=== PATIENT | female | born 1970 | race Caucasian/White ===

== ENCOUNTER → 2017-04-19 | Outpatient (CLI) | payer BC ==
[2017-04-19 12:16] LABS: HEMATOCRIT 37.5 % (37-47); MEAN CELL VOLUME 94.7 fL (80-100); MEAN CORPUSCULAR HEMOGLOBIN 32.6 pg (25-34); MEAN CORPUSCULAR HGB CONC 34.4 g/dl (32-36); MEAN PLATELET VOLUME 10.6 fL (7.4-10.4); PLATELET COUNT 236 K/uL (130-400); RED BLOOD COUNT 3.96 M/uL (4.2-5.4); WHITE BLOOD COUNT 6.85 K/uL (4.8-10.8)
[2017-04-19 12:49] LABS: ALT/SGPT 21 U/L (12-78); BLOOD UREA NITROGEN 10 mg/dl (7-18); CALCIUM 8.4 mg/dl (8.5-10.1); CARBON DIOXIDE 24 mmol/L (21-32); CHLORIDE 110 mmol/L (98-107); CHOLESTEROL 121 mg/dl (0-200); CREATININE 0.76 mg/dl (0.60-1.20); GLUCOSE,FASTING 87 mg/dl (70-99); POTASSIUM 3.7 mmol/L (3.5-5.1); SODIUM 143 mmol/L (136-145)
[2017-04-19 12:59] LABS: ALB/GLOB RATIO 0.9 (0.9-2); ALKALINE PHOSPHATASE 68 U/L (45-117); AST/SGOT 20 U/L (15-37); HDL CHOLESTEROL 41 mg/dl; LDL CHOLESTEROL CALCULATED 71 mg/dl; THYROID STIMULATING HORMONE 0.782 uIu/ml (0.300-4.500); TRIGLYCERIDES 44 mg/dl (0-150); VERY LOW DENSITY LIPOPROT CALC 9 mg/dl
--- NOTE | 2017-04-25 06:32 | CODING QUERY MEDICAL NECESSITY ---
SUPPORTING DIAGNOSIS NEEDED Norm RFANCIS, A supporting diagnosis is required for the test/procedure performed on this patient in order for us to be reimbursed by the patient's insurance. Please provide a supporting diagnosis for the following test/procedure listed below next to the test name along with your signature. *If there is no additional diagnosis for this patient that would support the following test/procedure please document that below next to the test/procedure. Test(s)/Procedure(s) that require a supporting diagnosis: * ([id number]) VITAMIN D ASSAY DIAGNOSIS: DATE OF SERVICE: 04/19/17 Provider Signature: Date: Thank you Pj Patricia [facility] Information Management Once completed, please kindly fax back to [phone] For questions please call [phone]
== END | disposition home or self-care (01) ==
LOC: C.LABPBG 07:50
PROVIDERS: ATTEND Family Medicine
DX: Z00.00 Encounter for general adult medical examination without abnormal findings (principal); E03.9 Hypothyroidism, unspecified; Z13.21 Encounter for screening for nutritional disorder; R53.83 Other fatigue

== ENCOUNTER → 2017-04-27 | Outpatient (CLI) | payer BC | END | disposition home or self-care (01) | LOC: C.LABPBG 12:31 | PROVIDERS: ATTEND Family Medicine | DX: M79.672 Pain in left foot (principal) ==

== ENCOUNTER → 2017-06-06 | Outpatient (CLI) | payer BC ==
[2017-06-06 12:26] LABS: THYROID STIMULATING HORMONE 0.113 uIu/ml (0.300-4.500)
== END | disposition home or self-care (01) ==
LOC: C.LABPBG 07:48
PROVIDERS: ATTEND Physician Assistant
DX: E03.9 Hypothyroidism, unspecified (principal)

== ENCOUNTER → 2017-08-06 | Outpatient (CLI) | payer OTHER | END | disposition home or self-care (01) | LOC: C.LABPBG 09:53 | PROVIDERS: ATTEND Family Medicine | DX: E03.9 Hypothyroidism, unspecified (principal) ==

== ENCOUNTER → 2018-02-28 | Outpatient (CLI) | payer OTHER ==
[2018-02-28 17:16] LABS: BLOOD UREA NITROGEN 24 mg/dl (7-18); CARBON DIOXIDE 30 mmol/L (21-32); CREATININE 0.76 mg/dl (0.60-1.20); GLUCOSE 90 mg/dl (70-99); POTASSIUM 3.8 mmol/L (3.5-5.1); SODIUM 140 mmol/L (136-145)
== END | disposition home or self-care (01) ==
LOC: C.LABPBG 13:24
PROVIDERS: ATTEND Family Medicine
DX: Z00.00 Encounter for general adult medical examination without abnormal findings (principal); E03.9 Hypothyroidism, unspecified; E55.9 Vitamin D deficiency, unspecified

== ENCOUNTER 2025-03-01 17:58 | Observation (INO) ==
[2025-03-01 18:47] LABS: Hematocrit (blood only) 40.9 % (37.0-47.0); Hemoglobin 14.1 g/dl (12.0-16.0); Immature Granulocytes # (auto) 0.03 K/uL (0.01-0.20); Immature Granulocytes % (auto) 0.4 %; Mean Corpuscular Hemoglobin 32.9 pg (25.0-34.0); Mean Corpuscular Volume 95.3 fL (80.0-100.0); Platelet Count 299 K/uL (130-400); RDW Standard Deviation 48.8 fL (36.4-46.3); Red Blood Count 4.29 M/uL (4.20-5.40); White Blood Count 7.94 K/ul (4.8-10.8)
[2025-03-01] MEDS: OPTIRAY 320 125ml IV ONE (18:50)
[2025-03-01] MEDS: SODIUM CHLORIDE 0.9% 1,000 ML IV ONE (19:00)
--- NOTE | 2025-03-01 19:00 | Emergency Department Note ---
Impression & Plan Right sided numbness, Pressure in head ED Provider Note Provider: Rivera Garcia MD CHIEF COMPLAINT: Head pressure, fog, numbness HISTORY OF PRESENT ILLNESS: Patient is a 54-year-old female history of psoriatic arthritis, hypothyroidism, and occasional migraines presenting here today with . Patient states was doing well and was out of town visiting family. Around 11:30 AM or so went out to eat with her 's family. At that time had sudden onset of some nausea. Started feel little bit spacey at that time. Did not pass out but does not remember much of lunch and did not eat anything. Family member had some Zofran and she took this and her nausea has abated and abated shortly after that. States around 2 PM she began to experience a fullness in the right side of her head with occasional pounding and some warmth in the upper chest. Having some numbness to her right face right arm and right leg. They are moving well. No speech issues although she is a bit soft-spoken. states she does get soft-spoken when she gets migraines. She states does not feel anything like prior migraines and she is never had associated numbness with it. No trauma. No passing out. They drove home and as she was feeling unwell he decided to stop here. Feels like she is in a bit of a fog by report. No more nausea. No abdominal pain. No chest pain. Patient with some unchanged chronic dizziness. No fevers or cough or cold reported. Did incidentally report a small rash with a red bump on her right wrist and her right shoulder for the last several days. Not spreading or changing somewhat itchy. PAST MEDICAL HISTORY: As noted above MEDICATIONS: Reviewed no medications includes estrogen supplement and includes Humira for psoriatic arthritis SOCIAL HISTORY: , lives in car at this PHYSICAL EXAM: GENERAL: alert and oriented in no acute distress on stretcher Head: normocephalic and atraumatic EYES: No injection, discharge or icterus. PERRL, EOMI. NECK: Trachea midline. Supple. ENT: Mucous membranes pink and moist. LUNGS: Airway patent. No retractions or tachypnea HEART: Regular rate and rhythm. ABDOMEN: Soft and non-tender, without guarding or rebound. SKIN: Acyanotic, warm, dry, without rashes EXTREMITIES: Without swelling, tenderness or deformity NEUROLOGICAL: No aphasia. No facial droop or slurred speech. Tongue midline. Normal strength and tone in the extremities. Diminished sensation on the right arm diffusely, leg diffusely, and right face compared to left side but is present. Patient is ambulatory with normal gait. EK beats per minute. Normal sinus rhythm. No PVC or PAC. No acute ST segment elevation or depression with QTc 437. CONTINUOUS CARDIAC MONITORING: was ordered and showed a heart rate of 60s to 70s bpm in normal sinus rhythm Patient's laboratory studies and imaging reviewed. Differential includes Infection, dehydration, metabolic abnormality, hypo/hyperglycemia, electrolyte disturbance, anemia, hypoxia, cardiac sources, intracerebral event, toxicologic, neurologic, as well as other pathologies. IMPRESSION/MEDICAL DECISION MAKING: Patient is outside the window for thrombolytics and minimal numbness to the right face arm and leg. No motor deficits. No aphasia. No slurred speech. No infectious symptoms reported. Not a severe headache more of a pressure and occasional throb. Sent for CT and CTA. Basic blood work is sent. Blood sugar normal. No alcohol use reported. Blood work without significant anemia or leukocytosis. No severe electrolyte abnormality signs or renal dysfunction. Has not had much to eat or drink today and given some fluids and while she has a history of some migraines did give some Reglan in case this is migrainous in nature and she did have some nausea earlier. Symptoms do not seem consistent with SAH. Blood work here without significant anemia leukocytosis. No significant lecture light abnormalities or renal dysfunction. Lyme screen is negative. Troponin not significantly elevated. CT of the head and CT angiograms per radiology report without significant abnormality or intracranial hemorrhage. Patient did decline the Reglan here. Is receiving the IV fluids. Still with some right- sided numbness and "head pressure ". As such question of this could possibly represent occult CVA versus TIA. Could still be a complex migraine. Will bring in for further neurological evaluation. No LVO and outside the window for thrombolytics. DIAGNOSIS: Right-sided numbness, atypical headache DISPOSITION: Hospitalist will evaluate Patient was agreeable with this plan. 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, 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 Psoriatic arthritis Gout Hypothyroidism Migraine headache Vitamin D deficiency Medical History (Updated 03/01/25 @ 20:14 by Rivera Garcia M.D.) Benign cardiac murmur "no issues, had stress test and echo in 2000 to have this checked" Osteoarthritis of carpometacarpal (CMC) joint of left thumb Hx of migraines 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, 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 Influenza A (~08/09/23) hx, resolved COVID-19 virus detected recent exposure and positive home test 01/26/22- fever, aches, cough, sob>no residual symptoms BCC (basal cell carcinoma of skin) left thigh-surgically removed Surgical History Hx of cystoscopy S/P colonoscopy History of carpal tunnel release S/P skin cancer resection (06/2020) S/P hysterectomy (2011) H/O left wrist surgery (01/2016) Family History Father Cardiovascular disorder Diabetes Hypertension Kidney disease Myocardial infarction Colonic polyp Mother , 2016 Gallbladder disease Osteoporosis Parkinson disease Grandfather (Paternal) Colorectal cancer Denies family history of Ovarian cancer Breast cancer Social History Smoking Status: Never smoker Tobacco Type: Cigarettes Age Started Using Tobacco: 17; Age Quit Using Tobacco: 18; packs per day: 0.15; Second Hand Exposure: Yes (hx as child); Do You Dip or Chew Tobacco: No; Hx Alcohol Use: Yes Alcohol type: beer, wine and hard liquor Hx Substance Use: No Preferred Language: Turkmen Communication Ability: Effective Visual Impairment: No Limitations Hearing Ability: Normal Plaster Form Maker Required: No Beliefs That Will Affect Care: None marital status: Current Living Situation: Spouse Current Living Situation Comment: with spouse and children. 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 Feels Safe at Home: Yes Childhood Exposure to Second-Hand Smoke: No Diet: regular Diet Comment: Well balanced diet. caffeine: Yes (Coffee 1 per day. Tea 1 per day. ) during the past year weight has: decreased > 10 lbs Dental Care, Regularly: Yes Physical Activity Frequency: Daily Physical Activity Frequency Comment: Walking with dog. Seatbelt Use: always Sunscreen Use: Yes Assistive Devices: Glasses Allergies Allergies Allergy/AdvReac Type Severity Reaction Status Date / Time celecoxib [From Celebrex] Allergy Severe Difficulty Verified 12/29/24 11:10 Breathing doxycycline AdvReac Mild vertigo Verified 12/29/24 11:10 erythromycin base AdvReac Mild Vomiting Verified 12/29/24 11:10 [From Erythrocin] Home Meds Home Medications Medication Instructions Recorded Confirmed calcium carbonate (Oyster Shell 1,000 mg PO HS 03/06/19 03/01/25 Calcium) multivitamin 1 tab PO QPM 03/06/19 03/01/25 cholecalciferol (vitamin D3) 25 2,000 units PO QAM 03/11/19 03/01/25 mcg (1,000 unit) tablet (Vitamin D3) adalimumab 40 mg/0.8 mL 40 mg subcut Q14D 10/06/20 03/01/25 subcutaneous pen kit (Humira Pen) cetirizine 10 mg tablet (Zyrtec) 10 mg PO QAM PRN Allergy Symptoms 03/17/21 03/01/25 meloxicam 15 mg tablet 15 mg PO QAM PRN Pain 04/15/24 03/01/25 fluticasone propionate 50 2 spray intranasal QAM 06/12/24 03/01/25 mcg/actuation nasal spray,suspension (Flonase Allergy Relief) hydrocortisone 2.5 % topical 1 applic topical BID PRN flaring 06/12/24 03/01/25 ointment Previous Rx's Medication Instructions Recorded pantoprazole 40 mg tablet,delayed 40 mg PO DAILY #90 tabs 08/19/24 release budesonide-formoterol HFA 80 1 inh inhalation BID #10.2 grams 12/29/24 mcg-4.5 mcg/actuation aerosol inhaler loratadine-pseudoephedrine ER 10 1 tab PO DAILY #90 tabs 12/31/24 mg-240 mg tablet,extended [id number] (Claritin-D 24 Hour) albuterol sulfate 90 mcg/actuation 1 - 2 puff inhalation Q4H PRN 01/06/25 aerosol inhaler shortness of breath or wheezing #8.5 grams estradiol 0.5 mg tablet 0.5 mg PO HS #90 tabs 01/26/25 levothyroxine 100 mcg tablet 100 mcg PO HS #90 tabs 01/26/25 Results & Data (ED) Vital Signs Vital Signs - 24 hr 03/01/25 18:04 03/01/25 18:09 03/01/25 18:24 Temperature 36.6 C Temperature Source Oral Pulse Rate 79 79 Pulse Rate [Apical] 74 Pulse Rhythm Regular Pulse Rhythm [Apical] Regular Pulse Strength Normal Pulse Strength [Apical] Normal Respiratory Rate 20 20 Respiratory Effort / Characteristics Non-Labored Spontaneous Non-Labored Spontaneous Respiratory Depth Normal Normal Respiratory Pattern Regular Regular Blood Pressure 158/92 H Blood Pressure [Right Arm] 158/92 H Blood Pressure Mean 114 Blood Pressure Mean [Right Arm] 114 Blood Pressure Position Lying Blood Pressure Position [Right Arm] Lying Pulse Oximetry 100 95 Oxygen Delivery Method Room Air Room Air Sepsis Recent Fever Within 48 Hours No Sepsis New/Unexplained Change in Mental Status No Sepsis Action Taken by Nursing No Action Required 03/01/25 18:41 Temperature Temperature Source Pulse Rate Pulse Rate [Apical] 73 Pulse Rhythm Pulse Rhythm [Apical] Regular Pulse Strength Pulse Strength [Apical] Normal Respiratory Rate 20 Respiratory Effort / Characteristics Non-Labored Spontaneous Respiratory Depth Normal Respiratory Pattern Regular Blood Pressure Blood Pressure [Right Arm] 158/92 H Blood Pressure Mean Blood Pressure Mean [Right Arm] 114 Blood Pressure Position Blood Pressure Position [Right Arm] Lying Pulse Oximetry 93 Oxygen Delivery Method Room Air Sepsis Recent Fever Within 48 Hours Sepsis New/Unexplained Change in Mental Status Sepsis Action Taken by Nursing Laboratory Data 03/01/25 18:20 03/01/25 18:20 Lab Results 03/01/25 03/01/25 03/01/25 Range/Units 18:15 18:20 18:27 WBC 7.94 (4.8-10.8) K/ul RBC 4.29 (4.20-5.40) M/uL Hgb 14.1 (12.0-16.0) g/dl POC Hgb 15.3 (12.0-16.0) g/dl Hct 40.9 (37.0-47.0) % POC Hct 45 (37-47) % MCV 95.3 (80.0-100.0) fL MCH 32.9 (25.0-34.0) pg MCHC 34.5 (32.0-36.0) g/dL RDW Std Deviation 48.8 H (36.4-46.3) fL RDW Coeff of Marva 13.8 (11.5-14.5) % Plt Count 299 (130-400) K/uL MPV 10.0 (9.4-12.4) fL Immature Gran % (Auto) 0.4 % Neut % (Auto) 72.7 % Lymph % (Auto) 21.2 % Kenton % (Auto) 4.5 % Eos % (Auto) 0.4 % Baso % (Auto) 0.8 % Neut # (Auto) 5.78 (1.40-6.50) K/uL Lymph # (Auto) 1.68 (1.20-3.40) K/uL Kenton # (Auto) 0.36 (0.11-0.59) K/uL Eos # (Auto) 0.03 (0.00-0.50) K/uL Baso # (Auto) 0.06 (0.00-0.20) K/uL Immature Gran # (Auto) 0.03 (0.01-0.20) K/uL PT 10.5 (9.0-12.0) Seconds INR 1.0 (0.9-1.1) APTT 27 (21-31) Seconds PTT Ratio 1.0 POC Sodium 140 (135-144) mmol/L Sodium 139 (136-145) mmol/L POC Potassium 3.9 (3.3-5.0) mmol/L Potassium 3.9 (3.5-5.1) mmol/L POC Chloride 103 (101-112) mmol/L Chloride 103 (98-107) mmol/L Carbon Dioxide 27 (21-32) mmol/L POC Total CO2 26 (24-31) mmol/L Anion Gap 9 (3-11) POC Anion Gap 16.0 (16-25) mmol/L POC BUN 8 (7-18) mg/dl BUN 9 (6-23) mg/dl Creatinine 0.84 (0.6-1.2) mg/dl POC Creatinine 0.9 (0.6-1.3) mg/dl Est Cr Clr Drug Dosing 80.5 ml/min eGFR 81.51 BUN/Creatinine Ratio 10.7 (10-20) Glucose 99 (70-99(Fasting)) mg/dl POC Glucose 75 (70-99) mg/dl POC Glucose (other) 100 H (70-99) mg/dl Calcium 9.8 (8.6-10.3) mg/dl POC Ioniz Calcium Harshil 1.18 (1.12-1.32) mmol/l Magnesium 2.1 (1.7-2.4) mg/dl Total Bilirubin 0.4 (0.2-1.0) mg/dl AST 24 (13-39) U/L ALT 17 (7-52) U/L Alkaline Phosphatase 77 (34-104) U/L Troponin I High Sens 15.1 H (0-14) pg/ml Total Protein 8.2 (6.0-8.3) gm/dl Albumin 4.4 (3.4-5.0) gm/dl Globulin 3.8 (2.5-4.0) gm/dl Albumin/Globulin Ratio 1.2 (0.9-2) Lyme Disease Screen Negative (Negative) Administered Medications Discontinued Medications Sodium Chloride (Nss) 1,000 mls @ 999 mls/hr IV .Q1H1M ONE Stop: 03/01/25 19:40 Last Admin: 03/01/25 19:00 Dose: 999 mls/hr Documented By: RADHA Ioversol (Optiray 320 125ml) 115 ml IV ONCE ONE Stop: 03/01/25 18:51 Last Admin: 03/01/25 18:50 Dose: 115 ml Documented By: ARTURO Metoclopramide HCl (Metoclopramide Hcl Inj 5 Mg/Ml 2 Ml Vial) 10 mg IV NOW STA Stop: 03/01/25 18:41 Last Admin: 03/01/25 20:01 Dose: Not Given Documented By: YAYA Imaging Data Radiologist's Impression: Head CT 03/01/25 18:[address] without contrast CT angiogram of the neck CT angiogram of the brain with contrast Provided History: facial numbness. Nausea. Comparison: None Technique: HEAD CT: Using multidetector thin collimation helical acquisition technique, axial, coronal and sagittal CT images from the skull base to the vertex were obtained without intravenous contrast. HEAD and NECK CTA: During rapid bolus intravenous injection of nonionic contrast material, axial images were obtained using thin collimation multidetector helical technique from the base of the neck through the of vertex of the head. This CT angiogram data was reconstructed at thin intervals with mild overlap. 3D reconstructions were obtained. The axial source images, multiplanar reformations, 3D reconstructions in both maximum intensity projection display and volume rendered models were reviewed. Dose reduction techniques were achieved by using automatic exposure control and/or adjustment of mA and/or kV according to patient size and/or use of iterative reconstruction technique. Findings: Head CT: There is no intracranial hemorrhage, mass effect, or midline shift. Baca/white matter differentiation in both cerebral hemispheres is preserved. Ventricles are proportionate to the cerebral sulci. Head CTA demonstrates no aneurysm or stenosis of the major intracranial arteries. Neck CTA demonstrates no stenosis of the major cervical arteries. The origins of the great vessels from the aortic arch are patent. No mass is noted within the visualized portions of the cervical soft tissues or lung apices. Thyroid gland atrophy. Impression: 1. Head CTA demonstrates no aneurysm or stenosis of the major intracranial arteries, 2. Neck CTA demonstrates no stenosis of the major cervical arteries. 3. No intracranial hemorrhage on the noncontrast head CT. Electronically signed by Javad Smith 03-01-2025 7:09 PM Head CTA 03/01/25 18:[address] without contrast CT angiogram of the neck CT angiogram of the brain with contrast Provided History: facial numbness. Nausea. Comparison: None Technique: HEAD CT: Using multidetector thin collimation helical acquisition technique, axial, coronal and sagittal CT images from the skull base to the vertex were obtained without intravenous contrast. HEAD and NECK CTA: During rapid bolus intravenous injection of nonionic contrast material, axial images were obtained using thin collimation multidetector helical technique from the base of the neck through the of vertex of the head. This CT angiogram data was reconstructed at thin intervals with mild overlap. 3D reconstructions were obtained. The axial source images, multiplanar reformations, 3D reconstructions in both maximum intensity projection display and volume rendered models were reviewed. Dose reduction techniques were achieved by using automatic exposure control and/or adjustment of mA and/or kV according to patient size and/or use of iterative reconstruction technique. Findings: Head CT: There is no intracranial hemorrhage, mass effect, or midline shift. Baca/white matter differentiation in both cerebral hemispheres is preserved. Ventricles are proportionate to the cerebral sulci. Head CTA demonstrates no aneurysm or stenosis of the major intracranial arteries. Neck CTA demonstrates no stenosis of the major cervical arteries. The origins of the great vessels from the aortic arch are patent. No mass is noted within the visualized portions of the cervical soft tissues or lung apices. Thyroid gland atrophy. Impression: 1. Head CTA demonstrates no aneurysm or stenosis of the major intracranial arteries, 2. Neck CTA demonstrates no stenosis of the major cervical arteries. 3. No intracranial hemorrhage on the noncontrast head CT. Electronically signed by Javad Smith 03-01-2025 7:09 PM Neck CTA 03/01/25 18:[address] without contrast CT angiogram of the neck CT angiogram of the brain with contrast Provided History: facial numbness. Nausea. Comparison: None Technique: HEAD CT: Using multidetector thin collimation helical acquisition technique, axial, coronal and sagittal CT images from the skull base to the vertex were obtained without intravenous contrast. HEAD and NECK CTA: During rapid bolus intravenous injection of nonionic contrast material, axial images were obtained using thin collimation multidetector helical technique from the base of the neck through the of vertex of the head. This CT angiogram data was reconstructed at thin intervals with mild overlap. 3D reconstructions were obtained. The axial source images, multiplanar reformations, 3D reconstructions in both maximum intensity projection display and volume rendered models were reviewed. Dose reduction techniques were achieved by using automatic exposure control and/or adjustment of mA and/or kV according to patient size and/or use of iterative reconstruction technique. Findings: Head CT: There is no intracranial hemorrhage, mass effect, or midline shift. Baca/white matter differentiation in both cerebral hemispheres is preserved. Ventricles are proportionate to the cerebral sulci. Head CTA demonstrates no aneurysm or stenosis of the major intracranial arteries. Neck CTA demonstrates no stenosis of the major cervical arteries. The origins of the great vessels from the aortic arch are patent. No mass is noted within the visualized portions of the cervical soft tissues or lung apices. Thyroid gland atrophy. Impression: 1. Head CTA demonstrates no aneurysm or stenosis of the major intracranial arteries, 2. Neck CTA demonstrates no stenosis of the major cervical arteries. 3. No intracranial hemorrhage on the noncontrast head CT. Electronically signed by Javad Smith 03-01-2025 7:09 PM Discharge Plan Visit Data Chief Complaint: Nausea Stated Complaint: DIZZINESS, BRAIN FOG, NAUSEA ED Provider: Rivera Garcia Discharge Problem: Right sided numbness, Pressure in head Patient Disposition: Being Evaluated by Hospitalist Condition: Fair Forms Stand Alone Forms: My [facility] Marie zoidu Prescriptions Prescriptions: No Action pantoprazole 40 mg tablet,delayed release (DR/EC) 40 mg PO DAILY Qty: 90 3RF Claritin-D 24 Hour 10-240 mg tablet extended release 24 hr 1 tab PO DAILY Qty: 90 0RF albuterol sulfate 90 mcg/actuation HFA aerosol inhaler 1 - 2 puff INH Q4H PRN (Reason: shortness of breath or wheezing) Qty: 8.5 1RF Rx Instructions: 1-2puffs inhalation every 4-6 hrs PRN; levothyroxine 100 mcg tablet 100 mcg PO HS Qty: 90 1RF estradiol 0.5 mg tablet 0.5 mg PO HS Qty: 90 1RF Humira Pen 40 mg/0.8 mL pen injector kit 40 mg subcut Q14D Rx Instructions: start on day 29 of therapy cetirizine [Zyrtec] 10 mg tablet 10 mg PO QAM PRN (Reason: Allergy Symptoms) calcium carbonate [Oyster Shell Calcium] 500 mg calcium (1,250 mg) tablet 1,000 mg PO HS multivitamin tablet 1 tab PO QPM cholecalciferol (vitamin D3) [Vitamin D3] 1,000 unit (25 mcg) tablet 2,000 units PO QAM meloxicam 15 mg tablet 15 mg PO QAM PRN (Reason: Pain) budesonide-formoterol 80-4.5 mcg/actuation HFA aerosol inhaler 1 inh inhalation BID Qty: 10.2 2RF hydrocortisone 2.5 % ointment 1 applic topical BID PRN (Reason: flaring) Rx Instructions: Apply to areas of ears twice daily for up to 7 days as needed for flaring. fluticasone propionate [Flonase Allergy Relief] 50 mcg/actuation spray,suspension 2 spray intranasal QAM Rx Instructions: administer into each nostril Referrals Referrals: Vandana Franklin DO [Primary Care Provider] -
[2025-03-01 19:05] LABS: Alanine Aminotransferase 17.0 U/L (7-52); Albumin Globulin Ratio 1.2 (0.9-2); Alkaline Phosphatase 77.0 U/L (34-104); Anion Gap 9.0 (3-11); Bilirubin,Total 0.4 mg/dl (0.2-1.0); Blood Urea Nitrogen 9.0 mg/dl (6-23); Calcium 9.8 mg/dl (8.6-10.3); Carbon Dioxide 27.0 mmol/L (21-32); Chloride 103.0 mmol/L (98-107); Creatinine Clr Calc Pharmacy 80.5 ml/min; Globulin 3.8 gm/dl (2.5-4.0); Glucose 99.0 mg/dl (70-99(Fasting)); Magnesium 2.1 mg/dl (1.7-2.4); Potassium 3.9 mmol/L (3.5-5.1); Sodium 139.0 mmol/L (136-145); Total Protein 8.2 gm/dl (6.0-8.3)
--- NOTE | 2025-03-01 19:10 | CT Scan Report ---
Head CT without contrast CT angiogram of the neck CT angiogram of the brain with contrast Provided History: facial numbness. Nausea. Comparison: None Technique: HEAD CT: Using multidetector thin collimation helical acquisition technique, axial, coronal and sagittal CT images from the skull base to the vertex were obtained without intravenous contrast. HEAD and NECK CTA: During rapid bolus intravenous injection of nonionic contrast material, axial images were obtained using thin collimation multidetector helical technique from the base of the neck through the of vertex of the head. This CT angiogram data was reconstructed at thin intervals with mild overlap. 3D reconstructions were obtained. The axial source images, multiplanar reformations, 3D reconstructions in both maximum intensity projection display and volume rendered models were reviewed. Dose reduction techniques were achieved by using automatic exposure control and/or adjustment of mA and/or kV according to patient size and/or use of iterative reconstruction technique. Findings: Head CT: There is no intracranial hemorrhage, mass effect, or midline shift. Baca/white matter differentiation in both cerebral hemispheres is preserved. Ventricles are proportionate to the cerebral sulci. Head CTA demonstrates no aneurysm or stenosis of the major intracranial arteries. Neck CTA demonstrates no stenosis of the major cervical arteries. The origins of the great vessels from the aortic arch are patent. No mass is noted within the visualized portions of the cervical soft tissues or lung apices. Thyroid gland atrophy. Impression: 1. Head CTA demonstrates no aneurysm or stenosis of the major intracranial arteries, 2. Neck CTA demonstrates no stenosis of the major cervical arteries. 3. No intracranial hemorrhage on the noncontrast head CT. Electronically signed by Javad Smith 03-01-2025 7:09 PM
[2025-03-01 19:16] LABS: INR 1.0 (0.9-1.1); Partial Thromboplastin Time 27 Seconds (21-31); Prothrombin Time 10.5 Seconds (9.0-12.0)
[2025-03-01] MEDS: METOCLOPRAMIDE HCL INJ 5 MG/ML 2 ML VIAL IV STA (20:01)
--- NOTE | 2025-03-01 20:41 | History & Physical Report ---
Date of Service March 01, 2025 Assessment & Plan (1) Right sided numbness: (2) Stroke-like symptoms: (3) Psoriatic arthritis: (4) Migraine headache: Plan The patient is a 54-year-old female with a past medical history including prediabetes, asthma, latent TB, psoriatic arthritis, gout, hypothyroidism, migraine headache and vitamin D deficiency. Imaging in the emergency department included CT scan of head without contrast which was negative, CTA head and neck were both negative. Her troponin was initially elevated at 15.1 with follow-up pending. Lyme testing was negative. She did receive 1 L normal saline bolus in the ED, and received Reglan 10 mg IV from the ED as well.The patient presents to the emergency department with acute onset of nausea without vomiting, right facial, right arm and right leg numbness that began around lunchtime today. She was not able to eat lunch due to symptoms. Her symptoms not changed throughout the day. She does have a mild headache as well. She talks as if she is in slow motion, and she told her that she feels like she is functionally very slowly. She has not had symptoms like this in the past. She has been running daily for the past month, but was unable to on , 3 days ago, due to a mild psoriatic arthritis flare involving her knees. She did actually go on a run on Sunday, 2 days ago. She has not taken any of her medications today due to symptoms of nausea. She has had no difficulty with speech other than talking slowly, and no difficulty with swallowing. She does have a history of migraines, but the symptoms are unlike previous migraines. They had been visiting family about an hour or so away, and drove to the ED to be seen near her home now. Her last bowel movement was today, just before the symptoms developed around 11:30 AM Right-sided facial, arm and leg numbness/strokelike symptoms- Symptoms began along with nausea at around 11:30 AM in the morning, making this her last known well time Stroke without thrombolytic order set CT head without contrast is negative CTA head and neck are negative The patient will be admitted to telemetry for serial cardiac enzymes, serial EKG's, cardiac rhythm monitoring and a 2-D echocardiogram with Dopplers. Lyme test negative. No history of tick bites MRI brain without contrast ordered Check hemoglobin A1c and fasting lipid panel Aspirin 81 mg every morning Start rosuvastatin 10 mg every morning Acetaminophen 1 g IV every 8 hours as needed for mild pain or fever Consult neurology Elevated troponin- Troponin 15.1 admission, with follow-up ordered and per protocol Likely supply/demand mismatch Psoriatic arthritis- On Humira as outpatient Continue meloxicam as needed GERD- Continue pantoprazole, but changed to IV Asthma- Continue usual inhalers History of Present Illness Chief Complaint: The patient presents to the emergency department with acute onset of nausea without vomiting, right facial, right arm and right leg numbness that began around lunchtime today. She was not able to eat lunch due to symptoms. Her symptoms not changed throughout the day. She does have a mild headache as well. She talks as if she is in slow motion, and she told her that she feels like she is functionally very slowly. She has not had symptoms like this in the past. She has been running daily for the past month, but was unable to on , 3 days ago, due to a mild psoriatic arthritis flare involving her knees. She did actually go on a run on Sunday, 2 days ago. She has not taken any of her medications today due to symptoms of nausea. She has had no difficulty with speech other than talking slowly, and no difficulty with swallowing. She does have a history of migraines, but the symptoms are unlike previous migraines. They had been visiting family about an hour or so away, and drove to the ED to be seen near her home now. Her last bowel movement was today, just before the symptoms developed around 11:30 AM Primary Care Provider: Vandana Franklin DO The patient is a 54-year-old female with a past medical history including prediabetes, asthma, latent TB, psoriatic arthritis, gout, hypothyroidism, migraine headache and vitamin D deficiency. She presents to the emergency department as noted above. Imaging in the emergency department included CT scan of head without contrast which was negative, CTA head and neck were both negative. Her troponin was initially elevated at 15.1 with follow-up pending. Lyme testing was negative. She did receive 1 L normal saline bolus in the ED, and received Reglan 10 mg IV from the ED as well. Allergies Allergy/AdvReac Type Severity Reaction Status Date / Time celecoxib [From Celebrex] Allergy Severe Difficulty Verified 12/29/24 11:10 Breathing doxycycline AdvReac Mild vertigo Verified 12/29/24 11:10 erythromycin base AdvReac Mild Vomiting Verified 12/29/24 11:10 [From Erythrocin] Home Medications Medication Instructions Recorded Confirmed Type calcium carbonate (Oyster Shell 1,000 mg PO HS 03/06/19 03/01/25 History Calcium) multivitamin 1 tab PO QPM 03/06/19 03/01/25 History cholecalciferol (vitamin D3) 25 2,000 units PO QAM 03/11/19 03/01/25 History mcg (1,000 unit) tablet (Vitamin D3) adalimumab 40 mg/0.8 mL 40 mg subcut Q14D 10/06/20 03/01/25 History subcutaneous pen kit (Humira Pen) cetirizine 10 mg tablet (Zyrtec) 10 mg PO QAM PRN Allergy Symptoms 03/17/21 03/01/25 History meloxicam 15 mg tablet 15 mg PO QAM PRN Pain 04/15/24 03/01/25 History fluticasone propionate 50 2 spray intranasal QAM 06/12/24 03/01/25 History mcg/actuation nasal spray,suspension (Flonase Allergy Relief) hydrocortisone 2.5 % topical 1 applic topical BID PRN flaring 06/12/24 03/01/25 History ointment pantoprazole 40 mg tablet,delayed 40 mg PO DAILY #90 tabs 08/19/24 03/01/25 Rx release budesonide-formoterol HFA 80 1 inh inhalation BID #10.2 grams 12/29/24 03/01/25 Rx mcg-4.5 mcg/actuation aerosol inhaler loratadine-pseudoephedrine ER 10 1 tab PO DAILY #90 tabs 12/31/24 03/01/25 Rx mg-240 mg tablet,extended [id number] (Claritin-D 24 Hour) albuterol sulfate 90 mcg/actuation 1 - 2 puff inhalation Q4H PRN 01/06/25 03/01/25 Rx aerosol inhaler shortness of breath or wheezing #8.5 grams estradiol 0.5 mg tablet 0.5 mg PO HS #90 tabs 01/26/25 03/01/25 Rx levothyroxine 100 mcg tablet 100 mcg PO HS #90 tabs 01/26/25 03/01/25 Rx Past Med/Surg History Problem List (Updated 03/01/25 @ 21:32 by Benitez Zambrano MD) Stroke-like symptoms Pressure in head (Acute) Right sided numbness (Acute) Weight loss Abdominal pain Change in bowel habits Prediabetes Osteoarthritis of carpometacarpal (CMC) joint of left thumb Asthma reactive- controlled w/ inhaler 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, 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 Psoriatic arthritis Gout Hypothyroidism Migraine headache Vitamin D deficiency Medical History (Updated 03/01/25 @ 21:32 by Benitez Zambrano MD) Benign cardiac murmur "no issues, had stress test and echo in 2000 to have this checked" Osteoarthritis of carpometacarpal (CMC) joint of left thumb Hx of migraines 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, 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 Influenza A (~08/09/23) hx, resolved COVID-19 virus detected recent exposure and positive home test 01/26/22- fever, aches, cough, sob>no residual symptoms BCC (basal cell carcinoma of skin) left thigh-surgically removed Surgical History Hx of cystoscopy S/P colonoscopy History of carpal tunnel release S/P skin cancer resection (06/2020) S/P hysterectomy (2011) H/O left wrist surgery (01/2016) Family History Father Cardiovascular disorder Diabetes Hypertension Kidney disease Myocardial infarction Colonic polyp Mother , 2016 Gallbladder disease Osteoporosis Parkinson disease Grandfather (Paternal) Colorectal cancer Denies family history of Ovarian cancer Breast cancer Social History Smoking Status: Never smoker Tobacco Type: Cigarettes Age Started Using Tobacco: 17; Age Quit Using Tobacco: 18; packs per day: 0.15; Second Hand Exposure: Yes (hx as child); Do You Dip or Chew Tobacco: No; Hx Alcohol Use: Yes Alcohol type: beer, wine and hard liquor Hx Substance Use: No Preferred Language: Malian Communication Ability: Effective Visual Impairment: No Limitations Hearing Ability: Normal Recovery Advocate Required: No Beliefs That Will Affect Care: None marital status: Current Living Situation: Spouse Current Living Situation Comment: with spouse and children. 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 Feels Safe at Home: Yes Childhood Exposure to Second-Hand Smoke: No Diet: regular Diet Comment: Well balanced diet. caffeine: Yes (Coffee 1 per day. Tea 1 per day. ) during the past year weight has: decreased > 10 lbs Dental Care, Regularly: Yes Physical Activity Frequency: Daily Physical Activity Frequency Comment: Walking with dog. Seatbelt Use: always Sunscreen Use: Yes Assistive Devices: Glasses Review of Systems Review of Systems: The patient denies chest pain, palpitations, shortness of breath, dyspnea on exertion, cough, lower extremity swelling, sore throat, fevers, chills, sweats, vomiting, diarrhea , constipation, abdomi nal pain, pelvic pain, blood in urine or stool, dysuria, urinary frequency or urgency, lightheadedness, dizziness, memory loss, loss of consciousness, rash, abnormal bruising or bleeding, focal weakness, numbness or tingling in arms or legs, or neck pain. The review of systems is otherwise negative other than for that already noted above, and at least 10 systems have been reviewed. Physical Exam Physical Exam: The patient is awake, alert and oriented 3, well developed and well nourished, normocephalic and atraumatic, lying in bed and in no acute distress. HEENT--PERRL, EOMI, mucous membranes and oropharynx mildly dry. Neck--supple. No JVD. No bruits. Thyroid normal, trachea midline, no luann nopathy. Heart--normal S1 and S2. No murmurs, rubs or gallops. Lungs--clear bilaterally, no respiratory distress, no accessory muscle use. Abdomen--normal bowel sounds and soft. Nontender. Nondistended, no hernias or masses, no organomegaly. Extremities--no cyanosis or clubbing. No edema. There are good distal pulses b/l. Dermatologic--normal skin turgor, normal color, no abnormal lymph nodes, no rash. Neurologic--cranial nerves II through XII grossly intact. Rheumatologic--normal range of motion. Psychiatric--normal affect. Results & Data Results & Data Vital Signs (Past 12 Hours) Vital Signs Temp Pulse Pulse Resp BP BP Pulse Ox 03/01/25 18:41 73 20 158/92 H 93 03/01/25 18:24 74 20 158/92 H 95 03/01/25 18:09 79 03/01/25 18:04 36.6 C 79 20 158/92 H 100 O2 Del Method 03/01/25 18:41 Room Air 03/01/25 18:24 Room Air 03/01/25 18:09 03/01/25 18:04 Room Air Laboratory Results Laboratory Results WBC 7.94 K/ul (4.8-10.8) 03/01/25 18:20 RBC 4.29 M/uL (4.20-5.40) 03/01/25 18:20 Hgb 14.1 g/dl (12.0-16.0) 03/01/25 18:20 POC Hgb 15.3 g/dl (12.0-16.0) 03/01/25 18:27 Hct 40.9 % (37.0-47.0) 03/01/25 18:20 POC Hct 45 % (37-47) 03/01/25 18:27 MCV 95.3 fL (80.0-100.0) 03/01/25 18:20 MCH 32.9 pg (25.0-34.0) 03/01/25 18:20 MCHC 34.5 g/dL (32.0-36.0) 03/01/25 18:20 RDW Std Deviation 48.8 fL (36.4-46.3) H 03/01/25 18:20 RDW Coeff of Marva 13.8 % (11.5-14.5) 03/01/25 18:20 Plt Count 299 K/uL (130-400) 03/01/25 18:20 MPV 10.0 fL (9.4-12.4) 03/01/25 18:20 Immature Gran % (Auto) 0.4 % 03/01/25 18:20 Neut % (Auto) 72.7 % 03/01/25 18:20 Lymph % (Auto) 21.2 % 03/01/25 18:20 Citrus % (Auto) 4.5 % 03/01/25 18:20 Eos % (Auto) 0.4 % 03/01/25 18:20 Baso % (Auto) 0.8 % 03/01/25 18:20 Neut # (Auto) 5.78 K/uL (1.40-6.50) 03/01/25 18:20 Lymph # (Auto) 1.68 K/uL (1.20-3.40) 03/01/25 18:20 Citrus # (Auto) 0.36 K/uL (0.11-0.59) 03/01/25 18:20 Eos # (Auto) 0.03 K/uL (0.00-0.50) 03/01/25 18:20 Baso # (Auto) 0.06 K/uL (0.00-0.20) 03/01/25 18:20 Immature Gran # (Auto) 0.03 K/uL (0.01-0.20) 03/01/25 18:20 PT 10.5 Seconds (9.0-12.0) 03/01/25 18:20 INR 1.0 (0.9-1.1) 03/01/25 18:20 APTT 27 Seconds (21-31) 03/01/25 18:20 PTT Ratio 1.0 03/01/25 18:20 POC Sodium 140 mmol/L (135-144) 03/01/25 18:27 Sodium 139 mmol/L (136-145) 03/01/25 18:20 POC Potassium 3.9 mmol/L (3.3-5.0) 03/01/25 18:27 Potassium 3.9 mmol/L (3.5-5.1) 03/01/25 18:20 POC Chloride 103 mmol/L (101-112) 03/01/25 18:27 Chloride 103 mmol/L (98-107) 03/01/25 18:20 Carbon Dioxide 27 mmol/L (21-32) 03/01/25 18:20 POC Total CO2 26 mmol/L (24-31) 03/01/25 18:27 Anion Gap 9 (3-11) 03/01/25 18:20 POC Anion Gap 16.0 mmol/L (16-25) 03/01/25 18:27 POC BUN 8 mg/dl (7-18) 03/01/25 18:27 BUN 9 mg/dl (6-23) 03/01/25 18:20 Creatinine 0.84 mg/dl (0.6-1.2) 03/01/25 18:20 POC Creatinine 0.9 mg/dl (0.6-1.3) 03/01/25 18:27 Est Cr Clr Drug Dosing 80.5 ml/min 03/01/25 18:20 eGFR 81.51 03/01/25 18:20 BUN/Creatinine Ratio 10.7 (10-20) 03/01/25 18:20 Glucose 99 mg/dl (70-99(Fasting)) 03/01/25 18:20 POC Glucose 75 mg/dl (70-99) 03/01/25 18:15 POC Glucose (other) 100 mg/dl (70-99) H 03/01/25 18:27 Calcium 9.8 mg/dl (8.6-10.3) 03/01/25 18:20 POC Ioniz Calcium Harshil 1.18 mmol/l (1.12-1.32) 03/01/25 18:27 Magnesium 2.1 mg/dl (1.7-2.4) 03/01/25 18:20 Total Bilirubin 0.4 mg/dl (0.2-1.0) 03/01/25 18:20 AST 24 U/L (13-39) 03/01/25 18:20 ALT 17 U/L (7-52) 03/01/25 18:20 Alkaline Phosphatase 77 U/L (34-104) 03/01/25 18:20 Troponin I High Sens 15.1 pg/ml (0-14) H 03/01/25 18:20 Total Protein 8.2 gm/dl (6.0-8.3) 03/01/25 18:20 Albumin 4.4 gm/dl (3.4-5.0) 03/01/25 18:20 Globulin 3.8 gm/dl (2.5-4.0) 03/01/25 18:20 Albumin/Globulin Ratio 1.2 (0.9-2) 03/01/25 18:20 Lyme Disease Screen Negative (Negative) 03/01/25 18:[address] 03/01/25 18:[address] without contrast CT angiogram of the neck CT angiogram of the brain with contrast Provided History: facial numbness. Nausea. Comparison: None Technique: HEAD CT: Using multidetector thin collimation helical acquisition technique, axial, coronal and sagittal CT images from the skull base to the vertex were obtained without intravenous contrast. HEAD and NECK CTA: During rapid bolus intravenous injection of nonionic contrast material, axial images were obtained using thin collimation multidetector helical technique from the base of the neck through the of vertex of the head. This CT angiogram data was reconstructed at thin intervals with mild overlap. 3D reconstructions were obtained. The axial source images, multiplanar reformations, 3D reconstructions in both maximum intensity projection display and volume rendered models were reviewed. Dose reduction techniques were achieved by using automatic exposure control and/or adjustment of mA and/or kV according to patient size and/or use of iterative reconstruction technique. Findings: Head CT: There is no intracranial hemorrhage, mass effect, or midline shift. Baca/white matter differentiation in both cerebral hemispheres is preserved. Ventricles are proportionate to the cerebral sulci. Head CTA demonstrates no aneurysm or stenosis of the major intracranial arteries. Neck CTA demonstrates no stenosis of the major cervical arteries. The origins of the great vessels from the aortic arch are patent. No mass is noted within the visualized portions of the cervical soft tissues or lung apices. Thyroid gland atrophy. Impression: 1. Head CTA demonstrates no aneurysm or stenosis of the major intracranial arteries, 2. Neck CTA demonstrates no stenosis of the major cervical arteries. 3. No intracranial hemorrhage on the noncontrast head CT. Electronically signed by Javad Smith 03-01-2025 7:09 PM Head CTA 03/01/25 18:[address] without contrast CT angiogram of the neck CT angiogram of the brain with contrast Provided History: facial numbness. Nausea. Comparison: None Technique: HEAD CT: Using multidetector thin collimation helical acquisition technique, axial, coronal and sagittal CT images from the skull base to the vertex were obtained without intravenous contrast. HEAD and NECK CTA: During rapid bolus intravenous injection of nonionic contrast material, axial images were obtained using thin collimation multidetector helical technique from the base of the neck through the of vertex of the head. This CT angiogram data was reconstructed at thin intervals with mild overlap. 3D reconstructions were obtained. The axial source images, multiplanar reformations, 3D reconstructions in both maximum intensity projection display and volume rendered models were reviewed. Dose reduction techniques were achieved by using automatic exposure control and/or adjustment of mA and/or kV according to patient size and/or use of iterative reconstruction technique. Findings: Head CT: There is no intracranial hemorrhage, mass effect, or midline shift. Baca/white matter differentiation in both cerebral hemispheres is preserved. Ventricles are proportionate to the cerebral sulci. Head CTA demonstrates no aneurysm or stenosis of the major intracranial arteries. Neck CTA demonstrates no stenosis of the major cervical arteries. The origins of the great vessels from the aortic arch are patent. No mass is noted within the visualized portions of the cervical soft tissues or lung apices. Thyroid gland atrophy. Impression: 1. Head CTA demonstrates no aneurysm or stenosis of the major intracranial arteries, 2. Neck CTA demonstrates no stenosis of the major cervical arteries. 3. No intracranial hemorrhage on the noncontrast head CT. Electronically signed by Javad Smith 03-01-2025 7:09 PM Neck CTA 03/01/25 18:[address] without contrast CT angiogram of the neck CT angiogram of the brain with contrast Provided History: facial numbness. Nausea. Comparison: None Technique: HEAD CT: Using multidetector thin collimation helical acquisition technique, axial, coronal and sagittal CT images from the skull base to the vertex were obtained without intravenous contrast. HEAD and NECK CTA: During rapid bolus intravenous injection of nonionic contrast material, axial images were obtained using thin collimation multidetector helical technique from the base of the neck through the of vertex of the head. This CT angiogram data was reconstructed at thin intervals with mild overlap. 3D reconstructions were obtained. The axial source images, multiplanar reformations, 3D reconstructions in both maximum intensity projection display and volume rendered models were reviewed. Dose reduction techniques were achieved by using automatic exposure control and/or adjustment of mA and/or kV according to patient size and/or use of iterative reconstruction technique. Findings: Head CT: There is no intracranial hemorrhage, mass effect, or midline shift. Baca/white matter differentiation in both cerebral hemispheres is preserved. Ventricles are proportionate to the cerebral sulci. Head CTA demonstrates no aneurysm or stenosis of the major intracranial arteries. Neck CTA demonstrates no stenosis of the major cervical arteries. The origins of the great vessels from the aortic arch are patent. No mass is noted within the visualized portions of the cervical soft tissues or lung apices. Thyroid gland atrophy. Impression: 1. Head CTA demonstrates no aneurysm or stenosis of the major intracranial arteries, 2. Neck CTA demonstrates no stenosis of the major cervical arteries. 3. No intracranial hemorrhage on the noncontrast head CT. Electronically signed by Javad Smith 03-01-2025 7:09 PM Code Status & VTE Plan Code Status Full code VTE Prophylaxis Plan VTE Prophylaxis will be ordered: Yes PG Care Time/CCT Total # of Minutes Spent Total Time Spent with Patient: Total time spent is greater than 50% in coordination of care (as documented) at patient's floor/unit and/or counseling patient: Coding Level of Care Code 59407 INT INP/OBS CARE 3/75MIN Diagnoses Right sided numbness R20.0 Stroke-like symptoms R29.90 Psoriatic arthritis L40.50 Migraine headache G43.909
[2025-03-01] MEDS ORDERED: HYDROCORTISONE 2.5% OINT 20 GM TUBE TOP PRN (21:58)
[2025-03-01] MEDS ORDERED: CETIRIZINE HCL 10 MG TABLET PO PRN (21:58)
[2025-03-01] MEDS ORDERED: PHARMACIST DISCHARGE MED REC CONSULT PRN (21:58)
[2025-03-01] MEDS ORDERED: MELOXICAM 7.5 MG TAB PO PRN (21:58)
[2025-03-01] MEDS ORDERED: ALBUTEROL HFA 8 GM INHALER INH PRN (21:58)
[2025-03-01] MEDS: LACTATED RINGER'S 1,000 ML IV STA (21:59)
[2025-03-01] MEDS: LEVOTHYROXINE SODIUM 100 MCG TABLET PO SCH (23:32)
[2025-03-01] MEDS: MULTIVITAMIN TAB PO SCH (23:33)
--- NOTE | 2025-03-01 23:39 | Magnetic Resonance Report ---
MRI of the brain without contrast Technique: Noncontrast multiplanar multisequence MRI images of the brain. Reference is made to prior CT performed earlier on the same date Findings: No parenchymal signal abnormality present in this exam. Specifically no evidence of restricted diffusion to suggest infarct. No acute intracranial hemorrhage. Appropriate vascular flow voids present on this exam. Impression Unremarkable exam. Electronically signed by Binh Lazaro 03-01-2025 11:39 PM
[2025-03-01] MEDS: PANTOprazole 40 MG/10 ML SYR IV STA (23:49)
[2025-03-02] MEDS: CALCIUM CARBONATE 1250MG TAB PO SCH (00:57)
[2025-03-02] MEDS: ONDANSETRON INJ 2 MG/ML 2 ML VIAL IV PRN (03:21)
[2025-03-02] MEDS: ACETAMINOPHEN 1000 MG/100 ML IV IV PRN (03:24)
[2025-03-02 06:44] LABS: Hematocrit (blood only) 38.2 % (37.0-47.0); Hemoglobin 12.6 g/dl (12.0-16.0); Immature Granulocytes # (auto) 0.02 K/uL (0.01-0.20); Immature Granulocytes % (auto) 0.3 %; Mean Corpuscular Hemoglobin 31.7 pg (25.0-34.0); Mean Corpuscular Volume 96.0 fL (80.0-100.0); Platelet Count 251 K/uL (130-400); RDW Standard Deviation 49.2 fL (36.4-46.3); Red Blood Count 3.98 M/uL (4.20-5.40); White Blood Count 7.53 K/ul (4.8-10.8)
[2025-03-02 07:02] LABS: Alanine Aminotransferase 12.0 U/L (7-52); Albumin Globulin Ratio 1.4 (0.9-2); Alkaline Phosphatase 63.0 U/L (34-104); Anion Gap 6.0 (3-11); Bilirubin,Total 0.5 mg/dl (0.2-1.0); Blood Urea Nitrogen 7.0 mg/dl (6-23); Calcium 9.0 mg/dl (8.6-10.3); Carbon Dioxide 28.0 mmol/L (21-32); Chloride 106.0 mmol/L (98-107); Cholesterol 190.0 mg/dl (0-200); Creatinine Clr Calc Pharmacy 89.9 ml/min; Globulin 2.8 gm/dl (2.5-4.0); Glucose 99.0 mg/dl (70-99(Fasting)); HDL Cholesterol 49.0 mg/dl; Magnesium 2.0 mg/dl (1.7-2.4); Potassium 3.7 mmol/L (3.5-5.1); Sodium 140.0 mmol/L (136-145); Total Protein 6.7 gm/dl (6.0-8.3); Triglycerides 87.0 mg/dl (0-150)
[2025-03-02 07:34] LABS: Hemoglobin A1C 5.5 % (4.5-5.6)
--- NOTE | 2025-03-02 08:26 | Electrocardiogram Report ---
Test Reason : Blood Pressure : */* mmHG Vent. Rate : 69 BPM Atrial Rate : 69 BPM P-R Int : 136 ms QRS Dur : 68 ms QT Int : 408 ms P-R-T Axes : 70 14 64 degrees QTcB Int : 437 ms Normal sinus rhythm Normal ECG When compared with ECG of 06-Dec-2019 14:22, No significant change was found Confirmed by Olive Penaloza (Lebron) on 03/02/2025 8:26:11 AM Referred By: Confirmed By: Olive Penaloza
[2025-03-02] MEDS: PANTOprazole 40 MG/10 ML SYR IV SCH (09:00)
[2025-03-02] MEDS: FLUTICASONE PROPIONATE NA SPR 16 GM BTL NAE SCH (09:02)
[2025-03-02] MEDS: FLUTICASONE/VILANTEROL 100/25MCG 14 PUFFS/INHALER INH SCH (09:02)
[2025-03-02] MEDS: CHOLECALCIFEROL 25 MCG (1000 UNITS) TAB PO SCH (09:03)
[2025-03-02] MEDS: ASPIRIN 81 MG ECTAB PO SCH (09:04)
[2025-03-02] MEDS: LORATADINE 10 MG TAB PO SCH (09:04)
[2025-03-02] MEDS: ROSUVASTATIN CALCIUM 10 MG TAB PO SCH (09:05)
[2025-03-02] MEDS: KETOROLAC 30 MG/ML VIAL IV ONE (09:50)
--- NOTE | 2025-03-02 09:51 | Neurology Consultation ---
Date of Consultation March 02, 2025 Assessment & Plan (1) Migraine headache: (2) Right sided numbness: (3) Psoriatic arthritis: Plan Patient has a longstanding history of intermittent migraine headaches mostly common migraines without aura. She was admitted with an intense headache and right-sided numbness March 01. Although she continues to have the intense headache she does not have much numbness except for a small bit in the right cheek. This is consistent with complicated migraine. MRI of the brain showed no stroke and MR angiography of the head and neck were unremarkable. Laboratory studies were unremarkable. Therefore, there is no evidence of stroke and this was not consistent with a TIA. Recommendations: 1. Try IV Toradol to see if he can break the headache. If not we could use steroids to break the headache. 2. Consider CGRP inhibitors as an outpatient to treat headaches. She is not getting headaches frequent enough to consider regular medicine for headache prophylaxis, at this time. 3. Increase activity as able. 4. Consider changing estradiol to a progesterone product (there may be some link of stroke in women who are taking estrogen based products with a history of significant migraines). 5. I could follow-up as an outpatient if desired. Consider appointment with neurology PA 4 to 6 weeks discharge. Overall, I spent a total of 75 minutes with this case including review of records, review of MRI films, direct evaluation of patient at bedside, report generation, and discussion of the case with the patient and at bedside and Dr. Hunt including differential diagnosis and treatment options. History of Present Illness Reason for Consultation: Patient is a 54-year-old, who I was asked to see at the request of Dr. Zambrano, for neurologic consultation regarding headache and numbness. Requesting Physician: Dr. Zambrano Attending Physician: Rico Hunt MD History of Present Illness Patient has a longstanding history of migraine headaches since early teen years. They started around the time of her menses, but over the years they are not necessarily linked to her menstrual cycle. They tend to occur without an aura and start out with a throbbing pain that progresses to a severe intense pain with nausea, photophobia, and phonophobia. Occasionally there can be vomiting if severe. They tend to last 8 to 12 hours and she treats them with Tylenol and meloxicam. Most of the time she just needs to lay down in a dark room and sleep. Over the last year or so she has averaged a migraine about every 3 to 4 weeks. The patient was put on estradiol about 9 months ago as she is having hot flashes. She is also post hysterectomy. Headaches have been persistent over the years but they have never been as severe as the one she had March 01. March 01 in the morning she was feeling well. They were out of town visiting in [place]. Around 1130 they went out for lunch and she had the onset of significant nausea. She also noted some fuzzy thinking and trouble c oncentrating. Shortly thereafter she had a pressure sensation in the right side of her head. By 1330 she started having the onset of numbness in the right face arm and leg. Over the course of the afternoon the headache persisted and was progressive being very intense pounding. The right sided numbness was intense as well. She arrived to the emergency room on March 01 at 07/30/2003 with a temperature of 36.6, pulse 79 and regular, respiratory rate 20, blood 158/92, and saturation 100%. She was awake and alert with no focal neurologic deficits, meningeal signs, or encephalopathy. CBC, CHEM profile, Lyme antibody titer and liver profile were all unremarkable. CT scan of the head was unremarkable/normal. CT angiography of the head and neck showed no vascular stenoses or anomalies. MRI of the brain without contrast showed no acute stroke and she had little to no small vessel ischemic disease IV Tylenol and meloxicam have not helped her headache. This morning she has an intense pressure in the right side with significant photophobia. Her numbness this morning has improved and she is left with a small patch of numbness in her right cheek with the arm and leg back to normal. Interestingly, her mother had migraine headaches most of her adult life. Allergies Allergy/AdvReac Type Severity Reaction Status Date / Time celecoxib [From Celebrex] Allergy Severe Difficulty Verified 12/29/24 11:10 Breathing doxycycline AdvReac Mild vertigo Verified 12/29/24 11:10 erythromycin base AdvReac Mild Vomiting Verified 12/29/24 11:10 [From Erythrocin] Home Medications Medication Instructions Recorded Confirmed Type calcium carbonate (Oyster Shell 1,000 mg PO HS 03/06/19 03/01/25 History Calcium) multivitamin 1 tab PO QPM 03/06/19 03/01/25 History cholecalciferol (vitamin D3) 25 2,000 units PO QAM 03/11/19 03/01/25 History mcg (1,000 unit) tablet (Vitamin D3) adalimumab 40 mg/0.8 mL 40 mg subcut Q14D 10/06/20 03/01/25 History subcutaneous pen kit (Humira Pen) cetirizine 10 mg tablet (Zyrtec) 10 mg PO QAM PRN Allergy Symptoms 03/17/21 03/01/25 History meloxicam 15 mg tablet 15 mg PO QAM PRN Pain 04/15/24 03/01/25 History fluticasone propionate 50 2 spray intranasal QAM 06/12/24 03/01/25 History mcg/actuation nasal spray,suspension (Flonase Allergy Relief) hydrocortisone 2.5 % topical 1 applic topical BID PRN flaring 06/12/24 03/01/25 History ointment pantoprazole 40 mg tablet,delayed 40 mg PO DAILY #90 tabs 08/19/24 03/01/25 Rx release budesonide-formoterol HFA 80 1 inh inhalation BID #10.2 grams 12/29/24 03/01/25 Rx mcg-4.5 mcg/actuation aerosol inhaler loratadine-pseudoephedrine ER 10 1 tab PO DAILY #90 tabs 12/31/24 03/01/25 Rx mg-240 mg tablet,extended [id number] (Claritin-D 24 Hour) albuterol sulfate 90 mcg/actuation 1 - 2 puff inhalation Q4H PRN 01/06/25 03/01/25 Rx aerosol inhaler shortness of breath or wheezing #8.5 grams estradiol 0.5 mg tablet 0.5 mg PO HS #90 tabs 01/26/25 03/01/25 Rx levothyroxine 100 mcg tablet 100 mcg PO HS #90 tabs 01/26/25 03/01/25 Rx Patient History Medical History Benign cardiac murmur "no issues, had stress test and echo in 2000 to have this checked" Osteoarthritis of carpometacarpal (CMC) joint of left thumb Hx of migraines 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, 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 Influenza A (~08/09/23) hx, resolved COVID-19 virus detected recent exposure and positive home test 7/7/22- fever, aches, cough, sob>no residual symptoms BCC (basal cell carcinoma of skin) left thigh-surgically removed Surgical History Hx of cystoscopy S/P colonoscopy History of carpal tunnel release 06/24/21 right S/P skin cancer resection (06/2020) L thigh, excision basal cell S/P hysterectomy (2011) H/O left wrist surgery (01/2016) Repair of dorsal ulnar nerve Family History (Updated 03/02/25 @ 09:58 by Iraj Templeton MD) Father , in his 60s with heart disease Cardiovascular disorder Diabetes Hypertension Kidney disease Myocardial infarction Colonic polyp Heart disease Mother , 2016 Gallbladder disease Osteoporosis Parkinson disease FH: migraines Grandfather (Paternal) Colorectal cancer Denies family history of Ovarian cancer Breast cancer Social History (Updated 03/02/25 @ 09:59 by Iraj Templeton MD) Smoking Status: Former smoker Age Started Using Tobacco: 16; Age Quit Using Tobacco: 18; packs per day: 0.15; Second Hand Exposure: Yes (hx as child); Do You Dip or Chew Tobacco: No; Hx Alcohol Use: Yes Alcohol type: beer, wine and hard liquor Alcohol Intake Frequency: 2-4 x/Month Alcohol Intake Frequency Comment: Averages about 1 drink per week or less Hx Substance Use: No Preferred Language: Pashto Communication Ability: Effective Visual Impairment: No Limitations Hearing Ability: Normal 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 Feels Safe at Home: Yes Childhood Exposure to Second-Hand Smoke: No Diet: regular Diet Comment: Well balanced diet. caffeine: Yes (Coffee 1 per day. Tea 1 per day. ) during the past year weight has: decreased > 10 lbs Dental Care, Regularly: Yes Physical Activity Frequency: Daily Physical Activity Frequency Comment: Walking with dog. Seatbelt Use: always Sunscreen Use: Yes Assistive Devices: None Review of Systems Constitutional: no fever, no fatigue and no weakness Eyes: no diplopia, no eye pain and no worsening vision Ear, Nose, Mouth, Throat: no ear pain, no tinnitus, no hearing loss, no dizziness, no snoring, no hoarseness and no dysphagia Respiratory: no cough and no dyspnea Cardiovascular: no chest pain, no palpitations and no lightheadedness Gastrointestinal: no abdominal pain, no nausea and no vomiting Genitourinary: no dysuria, no urinary frequency and no urinary incontinence Musculoskeletal: no back pain, no neck pain, no radicular pain, no joint pain and no myalgia Integumentary: no rash and no lesions Neurologic: + numbness; no gait abnormality, no loca lized weakness, no generalized weakness, no tingling, no tremor(s), no abnormal movements, no headache(s), no abnormal speech, no confusion and no memory loss Psychiatric: no depression, no irritability, no anxiety, no difficulty concentrating, no confusion and no hallucinations Endocrine: no fatigue and no flushing Hematologic / Lymphatic: no easy bleeding and no easy bruising Allergy / Immunological: no urticaria and no problem reported Exam (Neuro) Physical Exam: The patient is right-handed. The patient is awake, alert, and attentive. Speech is normal without any aphasia or dysarthria. Mentation and thought processes are intact, with full orientation and normal fund of knowledge. Mood and affect are normal and appropriate. Appearance and grooming are normal. Short and long-term memory are intact. Pupils are 4 mm bilaterally and reactive to light. She is very photophobic. Extraocular eye muscles are intact without nystagmus. Visual acuity and visual davey seem normal grossly to confrontation. There are no deficits to sensation in the face in all 3 distributions of the fifth cranial nerve bilaterally, except for some decrease sensation to touch in a right V2 distribution. Corneal reflexes are positive bilaterally. Facial strength and symmetry was normal bilaterally. Hearing seems intact grossly to voice and finger rub bilaterally. Palate moves well without asymmetry. There is normal sternocleidomastoid and trapezius strength bilaterally. Tongue is midline with good strength bilaterally. Neck has a full range of motion without discomfort. There are no cervical bruits bilaterally. There are no cranial or ocular bruits. Heart is without murmur. There is a regular rhythm and rate. Cervical, thoracic, and lumbar spine are nontender to palpation. Gait was not tested but stance sitting up in bed is normal. With outstretched arms there is no drift. There are no resting, postural, or action tremors. There is no ataxia with finger to nose testing. There is good facility in the hands. No other abnormal involuntary movements are noted. Motor strength is 5/5 diffusely in the arms bilaterally including deltoids, biceps, triceps, brachioradialis, wrist flexors and extensors, drivability technician, and intrinsic hand muscles. Motor strength is 5/5 diffusely in the legs bilaterally including hip flexors, quadriceps, hamstrings, gastrocnemius, tibialis anterior, tibialis posterior, and Peroneii muscles bilaterally. Toe extensors are normal and there is good bulk in the extensor digitorum brevis muscles bilaterally. The limbs have good tone without rigidity or spasticity. There is no atrophy noted in the muscles. Muscle bulk is normal, there is no tenderness to palpation, no myotonia to percussion, and no fasciculations seen. Sensory examination is intact to touch and pin throughout all 4 limbs diffusely. Reflexes are 2/4 in the biceps, triceps, brachioradialis, quadriceps, and Achilles tendons bilaterally. Toes are downgoing with plantar stimulation bilaterally. Peripheral pulses are present and of normal quality distally in all 4 limbs. There is no peripheral edema noted in the limbs. Results & Data Vital Signs (Past 12 Hours) Vital Signs Temp Pulse Pulse Resp BP BP Pulse Ox 03/02/25 07:50 36.8 C 64 18 149/78 H 100 03/02/25 04:22 36.5 C 84 17 139/68 99 03/01/25 22:41 69 03/01/25 21:59 36.4 C L 64 18 147/85 H 99 03/01/25 21:58 O2 Del Method 03/02/25 07:50 Room Air 03/02/25 04:22 Room Air 03/01/25 22:41 03/01/25 21:59 Room Air 03/01/25 21:58 Room Air PG Care Time/CCT Total # of Minutes Spent Total Time Spent with Patient: Total time spent is greater than 50% in coordination of care (as documented) at patient's floor/unit and/or counseling patient: Coding Level of Care Code 51171 INT INP/OBS CARE 3/75MIN Diagnoses Migraine headache G43.909 Right sided numbness R20.0 Psoriatic arthritis L40.50
--- NOTE | 2025-03-02 11:13 | XCELERA ---
[id number] [id number]
[2025-03-02 12:12] VITALS: RESP 16; TEMP 98.1; O2SAT 98
--- NOTE | 2025-03-02 12:12 | Electrocardiogram Report ---
Test Reason : Blood Pressure : */* mmHG Vent. Rate : 62 BPM Atrial Rate : 62 BPM P-R Int : 146 ms QRS Dur : 74 ms QT Int : 438 ms P-R-T Axes : 82 36 85 degrees QTcB Int : 444 ms Normal sinus rhythm Normal ECG When compared with ECG of 01-Mar-2025 18:20, No significant change was found Confirmed by Jonathan Pineda ([id number]) on 03/02/2025 12:12:13 PM Referred By: REFERRED SELF Confirmed By: Jonathan Pineda
[2025-03-02 13:00] LABS: Appearance Urine Clear (Clear); Glucose Urine UA Negative (Negative)
[2025-03-02] MEDS ORDERED: DEXAMETHASONE SOD INJ 4 MG/ML VIAL IV STA (14:04)
[2025-03-02] MEDS: dexAMETHasone 10 MG in SYRINGE 0 ML IV ONE (14:31)
[2025-03-02] MEDS ORDERED: STROKE PATIENT DISCHARGE STA (15:50)
[2025-03-02 16:08] VITALS: BP 147/85; PULSE 59
[2025-03-02] MEDS: KETOROLAC TROMETHAMINE 15 MG/ML VIAL IV PRN (16:10)
--- NOTE | 2025-03-05 10:09 | Discharge Summary ---
Discharge Summary Date of Service March 02, 2025 Principal Dx & Hospital Course #1 = Principal Diagnosis (1) Migraine headache: Plan Babs Murphy is a 54 year old female admitted to [facility] from March 01 - 2024 due to stroke-like symptoms. She was diagnosed with complex migraine with normal brain MRI. She was seen by neurology and treated with Toradol and Dexamethasone. Recommended Ubrelvy not available on hospital formulary but will prescribe on discharge. She was also advised to use acetaminophen in addition to ibuprofen and Benadryl (diphenhydramine) as needed to break the cycle of complex migraines. Notes For Next Care Provider Consider migraine prophylaxis, ongoing ubrelvy prescription Medication Changes From Visit Ubrelvy prescribed Admission HPI Per Admitting Provider The patient is a 54-year-old female with a past medical history including prediabetes, asthma, latent TB, psoriatic arthritis, gout, hypothyroidism, migraine headache and vitamin D deficiency. She presents to the emergency depar tment as noted above. Imaging in the emergency department included CT scan of head without contrast which was negative, CTA head and neck were both negative. Her troponin was initially elevated at 15.1 with follow-up pending. Lyme testing was negative. She did receive 1 L normal saline bolus in the ED, and received Reglan 10 mg IV from the ED as well. Discharge Exam Constitutional WD/WN, vitals as above Respiratory normal respiratory effort, lungs clear to auscultation Cardiovascular RRR, no murmur, no edema Gastrointestinal (Abdomen) normal bowel sounds, soft, nontender, no hepatosplenomegaly Neurologic CN's II-XI intact bilaterally, moves all extremities and awake; no focal motor deficits Speech / Cognition: normal speech Motor/Sensory: no sensory deficit Discharge Plan Discharge Items Patient Disposition: Home - Self-Care Reason For Visit: STROKE LIKE SYMPTOMS Discharge Diagnosis: Complex migraine Condition on Discharge: Fair Activity: Resume your previous activity Non-emergency contact: Primary Care Provider Call non-emergency contact if: you have any medication questions and your symptoms worsen Follow-up/Referrals: Iraj Templeton MD [Physician] - 05/20/25 8:00 am (Follow up complex migraines) Vandana Franklin DO [Primary Care Provider] - 03/12/25 9:20 am Diet: Regular Addtl Attending Provider Instructions: You were admitted to [facility] from March 01 - 2024 due to stroke-like symptoms. You were diagnosed with complex migraine with normal brain MRI. You were seen by neurology and treated with Toradol and Dexamethasone. We will prescribe you Ubrelvy for use as an outpatient - use one dose if symptoms persist or return, may repeat dose after >= hours. Maximum: 200 mg per 24 hours. You can also use acetaminophen in addition to ibuprofen and Benadryl (diphenhydramine) as needed to break the cycle of complex migraines. Please follow up with neurology for ongoing recommendations. Pending Studies at Discharge: No Stand-Alone Forms: My [facility], Smoking Cessation Medications and DC Order Prescriptions: Continued pantoprazole 40 mg tablet,delayed release (DR/EC) 40 mg PO DAILY Qty: 90 3RF Claritin-D 24 Hour 10-240 mg tablet extended release 24 hr 1 tab PO DAILY Qty: 90 0RF albuterol sulfate 90 mcg/actuation HFA aerosol inhaler 1 - 2 puff INH Q4H PRN (Reason: shortness of breath or wheezing) Qty: 8.5 1RF Rx Instructions: 1-2puffs inhalation every 4-6 hrs PRN; levothyroxine 100 mcg tablet 100 mcg PO HS Qty: 90 1RF Humira Pen 40 mg/0.8 mL pen injector kit 40 mg subcut Q14D Rx Instructions: start on day 29 of therapy cetirizine [Zyrtec] 10 mg tablet 10 mg PO QAM PRN (Reason: Allergy Symptoms) calcium carbonate [Oyster Shell Calcium] 500 mg calcium (1,250 mg) tablet 1,000 mg PO HS multivitamin tablet 1 tab PO QPM cholecalciferol (vitamin D3) [Vitamin D3] 1,000 unit (25 mcg) tablet 2,000 units PO QAM meloxicam 15 mg tablet 15 mg PO QAM PRN (Reason: Pain) hydrocortisone 2.5 % ointment 1 applic topical BID PRN (Reason: flaring) Rx Instructions: Apply to areas of ears twice daily for up to 7 days as needed for flaring. fluticasone propionate [Flonase Allergy Relief] 50 mcg/actuation spray,suspension 2 spray intranasal QAM Rx Instructions: administer into each nostril No Action budesonide-formoterol 80-4.5 mcg/actuation HFA aerosol inhaler 1 inh inhalation BID PRN Ubrelvy 100 mg tablet 100 mg PO ONCE PRN Rx Instructions: if symptoms persist or return, may repeat dose after =2 hours. Maximum: 200 mg per 24 hours escitalopram oxalate [Lexapro] 5 mg tablet 5 mg PO DAILY Qty: 30 2RF Discharge Orders: Discharge Order (Routine); Ordered 03/02/25 Ordered By: Rico Hunt Admission Data Admit Date/Time: 03/01/25 20:41 Attending Provider: Rico Hunt Admit Provider: Benitez Zambrano Primary Care Provider: Vandana Franklin Other Providers: Benitez Zambrano; All Camacho Other Interventions: Discharge Summary Assessment (RN) Last Done: 03/02/25 16:02 Hospital Stay Data Consultations 03/01/25 19:58 ED Decision to Admit Stat 03/01/25 21:58 Consult Neurology Routine Diagnostic Imagining Performed 03/01/25 18:29 CT angio head w con Stat CT angio neck with con Stat CT head/brain wo con Stat 03/01/25 21:58 MR brain wo con Routine Pending Results Patient Have Any Pending Studies at Discharge: No Discharge Instructions Given to Patient (Per Discharging Provider) You were admitted to [facility] from March 01 - 2024 due to stroke-like symptoms. You were diagnosed with complex migraine with normal brain MRI. You were seen by neurology and treated with Toradol and Dexamethasone. We will prescribe you Ubrelvy for use as an outpatient - use one dose if symptoms persist or return, may repeat dose after >= hours. Maximum: 200 mg per 24 hours. You can also use acetaminophen in addition to ibuprofen and Benadryl (diphenhydramine) as needed to break the cycle of complex migraines. Please follow up with neurology for ongoing recommendations. Total Time Total Time Spent Total Time Spent (In Minutes): 35 Coding Level of Care Code 48606 INP/OBS DISCH >30 MIN Diagnoses Migraine headache G43.909
== END 2025-03-02 17:37 | disposition home or self-care (01) ==
LOC: ED 17:58 → SUATTDRO 20:41 → 2S 20:41 → INTOOBSV 20:41 → 2S 21:58